=== PATIENT | female | born 1960 | race Two or more races ===

== ENCOUNTER 2024-03-20 19:16 | Emergency (ER) | payer MEDICARE, MEDICAID, SELFPAY ==
[2024-03-20 19:17] VITALS: BMI 30.2
--- NOTE | 2024-03-20 20:20 | PC.NURSE ---
NO ANSWER WHEN CALLED TO BE TRIAGED
--- NOTE | 2024-03-20 20:38 | PC.NURSE ---
NO ANSWER WHEN CALLED TO BE PLACED IN ROOM.
--- NOTE | 2024-03-20 20:56 | PC.NURSE ---
called pt in er lobby and outside and no answer at this time.
== END 2024-03-20 20:56 | disposition left against medical advice (07) ==
LOC: SERX 21:15
PROVIDERS: Emergency Provider Emergency Medicine
DX: Z53.21 Procedure and treatment not carried out due to patient leaving prior to being seen by health care provider (principal)

== ENCOUNTER 2024-08-07 10:59 | Emergency (ER) | payer MEDICARE, SELFPAY ==
[2024-08-07 11:17] VITALS: BP 135/93; PULSE 66; RESP 18; TEMP 36.9; O2SAT 96; BMI 28.3
--- NOTE | 2024-08-07 11:21 | XR_ITS ---
Examination: CT brain head without contrast. 2-D sagittal coronal reconstructions Date and time of exam:August 07, 2024 1218 hours Comparison February 04, 2024 INDICATIONS: Onset blurred vision vertigo tinnitus today, history large acute infarct right brainstem on brain MRI October 20, 2022 CTDI: vol (mGy):48 DLP: (mGycm):913 Technique: Multiple CT axial sections of the brain have been obtained, 5 mm slice thickness. Contrast has not been administered. 2-D sagittal, coronal reconstructions have been obtained Low dose protocols were performed. One or more of the following dose reduction techniques were used; automated exposure control, adjustment of the mA and/or KV according to patient size, use of iterative reconstruction technique. Findings: No significant ventricular enlargement. Old infarct right brainstem Intra-axial or extra-axial hemorrhage density is not seen. No mass effect or midline shift Basal cisterns are not remarkable. Fourth ventricle is midline. Cranial vault intact. 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
--- NOTE | 2024-08-07 11:22 | EKG_ITS ---
[facility] Test Date: 2024-08-07 Pat Name: JOSE LOPEZ Department: Room: - Gender: Female Vp Packaging: : 1960 Requested By: Bharat Munson Order Number: [id number] Reading MD: Bharat Munson Measurements Intervals Clymer Rate: 63 P: 20 ID: [id number] QRS: -56 QRSD: 83 T: -34 QT: 421 QTc: 432 Interpretive Statements SINUS RHYTHM LEFT AXIS DEVIATION [QRS AXIS < -30] VOLTAGE CRITERIA FOR LVH [MEETS CRITERIA IN ONE OF: R(aVL), S(V1), R(V5), R(V5/V6)+S(V1)] POSSIBLE ANTEROSEPTAL MYOCARDIAL INFARCTION , OF INDETERMINATE AGE [30 ms Q WAVE IN V1-V4] Compared to ECG 02/04/2024 10:57:25 No significant changes /store/S0/[id number]/[id number].pdf
--- NOTE | 2024-08-07 11:22 | PD.EDRME ---
Rapid Medical Screening Exam RME Arrival date/time: 08/07/24 10:59 63-year-old female with a history of hyperlipidemia, hypertension, type 2 diabetes, and 2 CVAs presents to the emergency room with a chief complaint of right ear pain, blurry vision, tinnitus, and dizziness x 2 days. Patient was sent to the emergency room by her primary care provider I have greeted and performed a focused initial assessment of this patient. A comprehensive ED assessment and evaluation of the patient, analysis of all test results, and completion of the medical decision making process will be conducted by additional ED providers. Chief Complaint: Dizziness Time Seen by Provider: 08/07/24 11:12 Vital signs: Vital Signs Temperature 98.4 F 08/07/24 11:17 Pulse Rate 66 08/07/24 11:17 Respiratory Rate 18 08/07/24 11:17 Blood Pressure 135/93 H 08/07/24 11:17 Pulse Oximetry (%) 96 08/07/24 11:17 Oxygen Delivery Method Room Air 08/07/24 11:17 Vital signs reviewed by provider: Yes
[2024-08-07 11:56] LABS: Basophils % (Auto) 0 % (0-2.5); Eosinophils # (Auto) 0.1 Thou/mm3 (0.0-0.5); Eosinophils % (Auto) 2 % (0-10); Hemoglobin 14.8 g/dL (12.0-16.0); Immature Granulocytes % (Auto) 0 % (0-0); Immature Granulocytes Auto 0.02 Thou/mm3 (0.00-0.00); Lymphocytes # (Auto) 2.7 Thou/mm3 (1.0-4.8); Lymphocytes % (Auto) 38 % (10-50); Mean Corpuscular HGB Conc 35.2 g/dl (31.0-37.0); Mean Corpuscular Hemoglobin 30.8 pg (25.0-35.0); Mean Corpuscular Volume 87 fL (80-100); Monocytes # (Auto) 0.4 Thou/mm3 (0.0-0.8); Monocytes % (Auto) 6 % (0-12); Neutrophils # (Auto) 3.7 Thou/mm3 (1.8-7.7); Neutrophils % (Auto) 53 % (37-80); Nucleated Red Blood Cell % 0 /100 WBC (0); Platelet Count 254 Thou/mm3 (140-440); RDW Standard Deviation 38.7 fL (36.4-46.3); Red Blood Count 4.81 Miln/mm3 (4.00-5.20)
[2024-08-07 12:14] LABS: Partial Thromboplastin Time 26.1 Seconds (22.0-36.0); Prothrombin Time 11.2 Seconds (9.0-12.2)
[2024-08-07 12:16] LABS: B-Type Natriuretic Peptide 32 pg/mL (0-100)
[2024-08-07 12:19] LABS: Alanine Aminotransferase 26 U/L (10-49); Albumin, Serum 4.3 gm/dL (3.4-4.8); Albumin/Globulin Ratio 1.7 (1.2-2.2); Alkaline Phosphatase 97 U/L (46-116); Anion Gap 10 (7-16); Aspartate Amino Transferase 19 U/L (0-34); BUN/Creatinine Ratio 21 Ratio (12-20); Blood Urea Nitrogen 17 mg/dL (9-23); Calcium 9.5 mg/dL (8.3-10.6); Calcium (Corrected) 9.5 mg/dL (8.5-10.1); Carbon Dioxide 29.5 mMol/L (20.0-31.0); Chloride 98 mMol/L (98-107); Creatinine (Component) 0.8 mg/dL (0.6-1.3); Globulin 2.6 gm/dL (2.3-3.5); Glucose 180 mg/dL (74-106); Magnesium 1.7 mg/dL (1.6-2.6); Osmolality,Calculated 280 (275-295); Potassium 3.6 mMol/L (3.4-5.1); Sodium 137 mMol/L (136-145); Total Protein 6.9 gm/dL (5.7-8.2); Troponin I < 0.002 ng/mL (0.0-0.045); eGFR > 60 See Note
[2024-08-07 12:29] LABS: Collection Type, Urine Clean Catch
[2024-08-07 12:58] LABS: Bilirubin,Urine Negative (Negative); Blood,Urine Trace (Negative); Clarity,Urine Clear (Clear/Hazy); Color,Urine Yellow (Lt Yel-Yel); Glucose, Urine Negative (Negative); Ketones,Urine Negative (Negative); Leukocyte Esterase,Urine Negative (Negative); Nitrite,Urine Negative (Negative); Protein,Urine Negative (Neg - Trace); RBC,Urine 5 /hpf (0-3); Squamous Epithelial Cell,Urine 2 /hpf (0-5); Urobilinogen,Urine Negative mg/dL (0.0-1.0); WBC,Urine 3 /hpf (0-5)
[2024-08-07 14:27] VITALS: BP 134/81; PULSE 58; RESP 20; TEMP 36.6; O2SAT 95
[2024-08-07 20:02] VITALS: BP 174/94; PULSE 54; RESP 18; TEMP 36.4; O2SAT 96
--- NOTE | 2024-08-07 21:36 | PD.EDDIZZY ---
ED Dizzyness RME/HPI General Chief Complaint: Dizziness Stated Complaint: sent by pmd w/c/o ringing in rt ear, dizzyx3 days Time Seen by Provider: 08/07/24 11:12 Source: patient and family Arrival date/time: 08/07/24 10:59 Mode of arrival: ambulatory Limitations: no limitations RME / HPI RME / HPI Narrative: 08/07/24 10:59 63-year-old female with a history of hyperlipidemia, hypertension, type 2 diabetes, and 2 CVAs presents to the emergency room with a chief complaint of right ear pain, blurry vision, tinnitus, and dizziness x 2 days. Patient was sent to the emergency room by her primary care provider I have greeted and performed a focused initial assessment of this patient. A comprehensive ED assessment and evaluation of the patient, analysis of all test results, and completion of the medical decision making process will be conducted by additional ED providers. Dr. Zuñiga?s Main ED Evaluation: 63-year-old female with a past medical history of HLD, HTN, T2DM, and two prior CVAs presents to the emergency department with right ear pain, blurry vision, tinnitus, and dizziness for the past two days. The patient was referred to the emergency department by her PCP for further evaluation. She describes the dizziness as a sensation of imbalance with no loss of consciousness, or focal neurological deficits. She denies fever, recent illness, or ear discharge. Related Data Home Medications ?Medication ?Instructions ?Recorded ?Confirmed sitagliptin phosphate 100 mg 100 mg PO QDAY 02/27/18 02/05/24 tablet (Januvia) pregabalin 75 mg capsule 150 mg PO BID 10/17/22 02/05/24 insulin glargine 100 unit/mL (3 40 unit subcut DAILY 02/04/24 02/05/24 mL) subcutaneous pen (Basaglar KwikPen U-100 Insulin) insulin regular human 100 unit/mL See Protocol subcut ACHS 02/04/24 02/05/24 (3 mL) subcutaneous pen (Novolin R FlexPen) acetaminophen 500 mg tablet 500 mg PO Q6H PRN Pain, Mild 02/05/24 02/05/24 aspirin 81 mg tablet 81 mg PO DAILY 02/05/24 02/05/24 benzonatate 200 mg capsule 200 mg PO TID 02/05/24 02/05/24 carvedilol 12.5 mg tablet 12.5 mg PO BID 02/05/24 02/05/24 clopidogrel 75 mg tablet 75 mg PO DAILY 02/05/24 02/05/24 glyburide 5 mg tablet 5 mg PO BID 02/05/24 02/05/24 hydrochlorothiazide 25 mg tablet 25 mg PO DAILY 02/05/24 02/05/24 hydroxyzine pamoate 50 mg capsule 50 mg PO QHSPRN PRN Pain 02/05/24 02/05/24 losartan 100 mg tablet 100 mg PO DAILY 02/05/24 02/05/24 Previous Rx's ?Medication ?Instructions ?Recorded atorvastatin 20 mg tablet 40 mg (2 x 20 mg) PO HS #30 tabs 02/06/24 meclizine 25 mg chewable tablet 25 mg PO TID PRN Dizziness #20 tabs 08/07/24 (Antivert) Allergies Allergy/AdvReac Type Severity Reaction Status Date / Time codeine Allergy Severe Nausea/Vomi Verified 08/07/24 11:04 tiing Review of Systems Review of Systems Systems Reviewed: All systems reviewed, normal except as documented Past Medical History Past Medical History NEUROLOGIC: Positive Neurological Disorders, Cerebrovascular Accident, Transient Ischemic Attacks (TIA) and Peripheral Neuropathy CARDIAC: Positive Cardiac Disorders, Angina, Hypercholesterolemia and Hypertension; Negative Congestive Heart Failure RESPIRATORY: Negative Chronic Obstructive Pulmonary Disease (COPD) GASTROINTESTINAL: Positive Gastrointestinal Disorders; Negative Colorectal Cancer GENITOURINARY: Negative Genitourinary Disorders or Renal Disease REPRODUCTIVE: Positive Pelvic Inflammatory Disease and Previous Pregnancies; Negative Breast Cancer MUSCULOSKELETAL: Positive Musculoskeletal Disorders and Arthritis; Negative Bone Cancer ENDOCRINE: Positive Endocrine Disorders and Diabetes Mellitus Type 2; Negative Diabetes Mellitus Type 1 HEMATOLOGIC: Negative Blood Disorders PSYCHO/SOCIAL: Positive Depression and Anxiety OTHER HISTORY: Positive Hospitalization and Chicken Pox; Negative Autoimmune Disease, Down Syndrome, Developmental Delay, Shingles, Falls, Blood Transfusions, Anesthesia Reactions, MRSA, Cancer, Breast Cancer, Cervical Cancer, Colorectal Cancer, Lung Cancer or Ovarian Cancer Family History FAMILY HISTORY: Positive Family Cardiac Disorders; Negative Family Cancer Surgical History SURGICAL: Positive Abdominal Surgery and Section Social History SMOKING STATUS: Never smoker ED Exam Narrative Physical exam: Cerebellar exam: no intention tremor, staccato speech, dysmetria or dysdiadochokinesia. The patient exhibits right-sided horizontal nystagmus but has no facial droop and no motor or sensory deficits. General Limitations: Present no limitations General appearance: Present alert and in no apparent distress Head Head exam: Present atraumatic Eye Eye exam: Present normal appearance, PERRL and EOMI ENT ENT exam: Present normal exam, normal oropharynx and mucous membranes moist Neck Neck exam: Present normal inspection, full ROM and trachea midline Chest Chest inspection: Present normal inspection and symmetric chest wall rise Respiratory Respiratory exam: Present normal lung sounds bilaterally Cardiovascular Cardiovascular exam: Present regular rate, normal rhythm and normal heart sounds Abdominal Exam Abdominal exam: Present soft and normal bowel sounds Extremities Exam Extremities exam: Present normal inspection and full ROM Back Exam Back exam: Present normal inspection and full ROM Neurological Exam Neurological exam: Present alert, oriented X3 and CN II-XII intact Psychiatric Psychiatric exam: Present normal affect and normal mood Skin Skin exam: Present warm, dry, intact and normal color Course Quality Measures none Orders Category Date Time Status EKG (ED ONLY) *Do not use* NOW Care 08/07/24 11:[address] head/brain wo con Stat Exams 08/07/24 11:21 Completed EKG (ED Only) Stat Exams 08/07/24 11:22 Draft B-Type Natriuretic Peptide Stat Lab 08/07/24 11:36 Completed CBC Stat Lab 08/07/24 11:36 Completed Comprehensive Metabolic Panel Stat Lab 08/07/24 11:36 Completed Magnesium Stat Lab 08/07/24 11:36 Completed Partial Thromboplastin Time Stat Lab 08/07/24 11:36 Completed Prothrombin Time with INR Stat Lab 08/07/24 11:36 Completed Troponin I Stat Lab 08/07/24 11:36 Completed Urinalysis Stat Lab 08/07/24 12:10 Completed Meclizine HCl [Antivert] Med 08/07/24 21:31 Discontinued 50 mg PO X1 ONE Vital Signs Vital signs: Vital Signs Temperature 98.4 F 08/07/24 11:17 Pulse Rate 66 08/07/24 11:17 Respiratory Rate 18 08/07/24 11:17 Blood Pressure 135/93 H 08/07/24 11:17 Pulse Oximetry (%) 96 08/07/24 11:17 Oxygen Delivery Method Room Air 08/07/24 11:17 Dizziness MDM Narrative MDM Narrative:: 2147 The patient expressed a desire to leave before a full reassessment could be performed to determine the effectiveness of meclizine in symptom relief. Scribe Attestation: I, Bouchra Cueva, am scribing for and in the presence of Dr. Zuñiga. Provider Notation: Although this document has been carefully reviewed, there may still be some phonetic and other typographical errors. These errors are purely grammatical due to imperfections in the software program and should not be construed in any way to compromise the substance of the patient's medical care during this visit. Patient data [facility] records reviewed:: [facility] previous records Clinical information provided by:: patient and family Social determinants that could affect healthcare access:: none Patient has the following chronic illnesses:: see PMH How is presenting disease/condition affected by chronic disease/condition?: uneffected by Evaluation data The following diagnostics were reviewed and interpreted by me:: lab results, radiology exam(s) and EKG tracing(s) Lab and/or radiology exams considered but not ordered:: na Interpretation Summary: Examination: CT brain head without contrast. Date and time of exam:August 07, 2024 1218 hours Comparison February 04, 2024 INDICATIONS: Onset blurred vision vertigo tinnitus today, history large acute infarct right brainstem on brain MRI October 20, 2022 Findings: No significant ventricular enlargement. Old infarct right brainstem Intra-axial or extra-axial hemorrhage density is not seen. No mass effect or midline shift Basal cisterns are not remarkable. Fourth ventricle is midline. Cranial vault intact. 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 Discharge instructions specifically effects, indications for sooner follow up or return to the emergency department, and the expected course of current diagnosis. Patient condition: Stable Discharge Plan Plan Patient Disposition: HOME (Self Care) Disposition Comment: Stable for discharge Patient condition on transfer: Stable Prescriptions/Referrals Prescriptions/Med Rec: New meclizine [Antivert] 25 mg tablet,chewable 25 mg PO TID PRN (Reason: Dizziness) Qty: 20 0RF No Action Januvia 100 mg Tablet 100 mg PO QDAY pregabalin 75 mg capsule 150 mg PO BID Patient Comments: TOME 1 C PSULA POR V A ORAL DOS VECES AL D A Novolin R FlexPen 100 unit/mL (3 mL) insulin pen See Protocol SUBCUT ACHS Protocol: Insulin Corrective High-Dose Regimen Condition: Fingerstick Blood Glucose Dose/Route: Insulin Units Condition: 150- 200 mg/dl Dose/Route: 2 units/SQ Condition: 201-250 mg/dl Dose/Route: 4 units/SQ Condition: 251-300 mg/dl Dose/Route: 6 units/SQ Condition: 301 - 350 mg/dl Dose/Route: 8 units/SQ Condition: greater than 350 mg/dl Dose/Route: 10 units/SQ Patient Comments: PLEASE SEE ATTACHED FOR DETAILED DIRECTIONS Rx Instructions: <150 = 0 151-200 = 2 units 201-250 = 4 units 251 - 300 = 6 units 301 - 350 = 8 units >350 = 10 units insulin glargine [Basaglar KwikPen U-100 Insulin] 100 unit/mL (3 mL) insulin pen 40 unit SUBCUT DAILY Patient Comments: INJECT 40 UNITS SUBCUTANEOUS DAILY 60 DAYS carvedilol 12.5 mg tablet 12.5 mg PO BID Patient Comments: MARITO JOSÉ LUIS TABLETA POR V A ORAL DOS VECES AL BELLA glyburide 5 mg tablet 5 mg PO BID benzonatate 200 mg capsule 200 mg PO TID Patient Comments: TOME 1 C PSULA POR V A ORAL GRETA VECES AL D A FOR 15 DAYS hydroxyzine pamoate 50 mg capsule 50 mg PO QHSPRN PRN (Reason: Pain) Patient Comments: TOME 1 CAPSULA POR VIA ORAL TODOS LOS MARTINEZ AL ACOSTARSE CUANDO SEA NECESARIO FOR 15 DAYS clopidogrel 75 mg tablet 75 mg PO DAILY Patient Comments: TOME JOSÉ LUIS TABLETA TODOS LOS MARTINEZ FOR 90 DAYS ORALLY 90 DAYS acetaminophen 500 mg tablet 500 mg PO Q6H PRN (Reason: Pain, Mild) aspirin 81 mg Tablet 81 mg PO DAILY hydrochlorothiazide 25 mg tablet 25 mg PO DAILY Patient Comments: TOME 1 TABLETA POR V A ORAL TODOS LOS D EN LA MA DUNCAN FOR 90 DAYS losartan 100 mg tablet 100 mg PO DAILY atorvastatin 20 mg Tablet 40 mg PO HS Qty: 30 0RF Referrals: Cristóbal Knox MD [Primary Care Provider] - In 1 week Problem List 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 Otherwise you should follow-up with your primary care doctor within the next several days. You should let your primary care doctor know that it was recommended that you be referred to an ear nose and throat doctor. If Karlie has any further difficulties with her ringing in her ear or feeling dizzy please return to the ER Print Language: Angolan Stand Alone Forms: [employer]on Award Info., Patient Portal Info Letter
[2024-08-07] MEDS: MECLIZINE HCL 25 MG TABLET 50 MG PO (21:39)
[2024-08-07 22:10] VITALS: BP 170/87; PULSE 65; RESP 18; TEMP 36.6; O2SAT 96
== END 2024-08-07 22:10 | disposition home or self-care (01) ==
PROVIDERS: Nurse Practitioner Family; Emergency Provider Emergency Medicine; PCP Family Medicine
DX: H81.01 Meniere's disease, right ear (principal); R94.31 Abnormal electrocardiogram [ECG] [EKG]
CPT/HCPCS: 36415; 70450; 80053; 81001; 83735; 83880; 84484; 85025; 85610; 85730; 93005; 99284; A9270

== ENCOUNTER 2024-10-25 11:29 | Inpatient (IN) | payer MEDICARE, MEDICAID, SELFPAY ==
[2024-10-25] VITALS (7 sets, daily range): BP systolic 133–170; BP diastolic 87–99; PULSE 53–82; RESP 16–96; TEMP 36.6–37; O2SAT 95–99; BMI 28.8
--- NOTE | 2024-10-25 12:06 | XR_ITS ---
Examination: CT brain head without contrast. 2-D sagittal coronal reconstructions Date and time of exam:October 25, 2024 1326 hours Comparison August 07, 2024 INDICATIONS: Patient fell today with injury of the head, head pain dizziness CTDI: vol (mGy):46.9 DLP: (mGycm):954 Technique: Multiple CT axial sections of the brain have been obtained, 5 mm slice thickness. Contrast has not been administered. 2-D sagittal, coronal reconstructions have been obtained Low dose protocols were performed. One or more of the following dose reduction techniques were used; automated exposure control, adjustment of the mA and/or KV according to patient size, use of iterative reconstruction technique. Findings: No significant ventricular enlargement. Intra-axial or extra-axial hemorrhage density is not seen. No mass effect or midline shift Basal cisterns are not remarkable. Fourth ventricle is midline. Cranial vault intact. Impression: Negative for acute hemorrhage, mass effect or midline shift
--- NOTE | 2024-10-25 12:06 | XR_ITS ---
Examination: CT cervical spine without contrast 2-D sagittal reconstructions 2-D coronal reconstructions 3-D reconstructions. Exam date and time:October 25, 2024 1326 hours Comparison October 10, 2022 INDICATIONS: Patient fell today with injury to the neck, neck pain CTDI:vol (mGy) 8.72 DLP: (mGycm) 194 Technique: Multiple 2 mm axial sections of the cervical spine have been obtained. The coronal and sagittal reconstructions have been obtained. 3-D reconstructions have been obtained. Low dose protocols were performed. One or more of the following dose reduction techniques were used; automated exposure control, adjustment of the mA and/or KV according to patient size, use of iterative reconstruction technique. Findings: Axial sections demonstrate intact base of the skull. C1 exhibit satisfactory relationship to the odontoid. No acute cervical vertebral body fracture seen. Alignment posterior spinous processes satisfactory. Impression: No acute cervical fracture.
--- NOTE | 2024-10-25 12:07 | EKG_ITS ---
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
--- NOTE | 2024-10-25 12:07 | XR_ITS ---
Examination: PA lateral chest 2 views TECHNIQUE: Upright PA lateral chest 2 views Date and time: October 25, 2024 1243 hours INDICATIONS: Hypertension diagnosis, patient fell today FINDINGS: Normal heart size No pneumothorax Clavicles ribs thoracic vertebral bodies appear intact IMPRESSION: No pneumothorax pulmonary contusion or hemothorax Minor atelectasis left base
--- NOTE | 2024-10-25 12:09 | PD.EDRME ---
Rapid Medical Screening Exam RME Arrival date/time: 10/25/24 11:29 63-year-old female presents to the emergency department today for complaints of dizziness and falls Chief Complaint: Fall Vital signs: Vital Signs Temperature 98.2 F 10/25/24 12:04 Pulse Rate 80 10/25/24 12:04 Respiratory Rate 16 10/25/24 12:04 Blood Pressure 152/89 H 10/25/24 12:04 Pulse Oximetry (%) 96 10/25/24 12:04 Oxygen Delivery Method Room Air 10/25/24 12:04
[2024-10-25 12:35] LABS: Collection Type, Urine Clean Catch
[2024-10-25 12:46] LABS: Bilirubin,Urine Negative (Negative); Blood,Urine Negative (Negative); Clarity,Urine Clear (Clear/Hazy); Color,Urine Colorless (Lt Yel-Yel); Glucose, Urine 4+ (Negative); Ketones,Urine Negative (Negative); Leukocyte Esterase,Urine Negative (Negative); Nitrite,Urine Negative (Negative); Protein,Urine Negative (Neg - Trace); RBC,Urine 1 /hpf (0-3); Specific Gravity,Urine 1.012 (1.001-1.035); Squamous Epithelial Cell,Urine < 1 /hpf (0-5); Urobilinogen,Urine Negative mg/dL (0.0-1.0); WBC,Urine < 1 /hpf (0-5)
[2024-10-25 12:48] LABS: Basophils % (Auto) 0 % (0-2.5); Eosinophils # (Auto) 0.1 Thou/mm3 (0.0-0.5); Eosinophils % (Auto) 1 % (0-10); Hematocrit 40.7 % (36.0-46.0); Hemoglobin 14.2 g/dL (12.0-16.0); Immature Granulocytes % (Auto) 0 % (0-0); Immature Granulocytes Auto 0.03 Thou/mm3 (0.00-0.00); Lymphocytes % (Auto) 25 % (10-50); Mean Corpuscular HGB Conc 34.9 g/dl (31.0-37.0); Mean Corpuscular Hemoglobin 30.9 pg (25.0-35.0); Mean Corpuscular Volume 89 fL (80-100); Monocytes # (Auto) 0.4 Thou/mm3 (0.0-0.8); Monocytes % (Auto) 5 % (0-12); Neutrophils # (Auto) 5.4 Thou/mm3 (1.8-7.7); Neutrophils % (Auto) 68 % (37-80); Nucleated Red Blood Cell % 0 /100 WBC (0); Platelet Count 282 Thou/mm3 (140-440); RDW Standard Deviation 40.8 fL (36.4-46.3); White Blood Count 7.9 Thou/mm3 (3.6-11.0)
[2024-10-25 13:07] LABS: B-Type Natriuretic Peptide 57 pg/mL (0-100)
[2024-10-25 13:10] LABS: Alanine Aminotransferase 25 U/L (10-49); Albumin, Serum 4.5 gm/dL (3.4-4.8); Alkaline Phosphatase 110 U/L (46-116); Anion Gap 12 (7-16); Aspartate Amino Transferase 21 U/L (0-34); BUN/Creatinine Ratio 20 Ratio (12-20); Bilirubin,Total 1.1 mg/dL (0.3-1.2); Blood Urea Nitrogen 14 mg/dL (9-23); Carbon Dioxide 26.2 mMol/L (20.0-31.0); Chloride 98 mMol/L (98-107); Creatinine (Component) 0.7 mg/dL (0.6-1.3); Estimated Creatinine Clearance 80.1 mL/min (>60); Globulin 2.2 gm/dL (2.3-3.5); Glucose 337 mg/dL (74-106); Magnesium 1.7 mg/dL (1.6-2.6); Osmolality,Calculated 285 (275-295); Potassium 3.5 mMol/L (3.4-5.1); Sodium 136 mMol/L (136-145); Total Protein 6.7 gm/dL (5.7-8.2); Troponin I < 0.020 ng/mL (0.0-0.045); eGFR > 60 See Note
[2024-10-25 13:12] LABS: Partial Thromboplastin Time 23.2 Seconds (22.0-36.0); Prothrombin Time 10.8 Seconds (9.0-12.2)
--- NOTE | 2024-10-25 17:16 | PD.EDFALL ---
ED Fall Injury RME/HPI General Chief Complaint: Fall Stated Complaint: HEAD INJURY FROM FALL OST SYNCOPE/BLACKED OUT Arrival date/time: 10/25/24 11:29 RME / HPI RME / HPI Narrative: 10/25/24 11:29 63-year-old female presents to the emergency department today for complaints of dizziness and falls DR. KATERINA POLK ED EVALUATION: 63 year old female with history of CVA (10/13 and 02/14), hypertension, diabetes, hyperlipidemia, vertigo (dx 07/2024) presents to the ED for evaluation of a right sided headache following a fall that occurred at approximately 10:00 AM today. The patient reports she was outside throwing leaves into the trash when she suddenly has darkening of vision followed by loss of consciousness. She awoke on the ground and called for help; her and son assisted her up. She denies any chest pain, shortness of breath, palpitations, or headache preceding LOC. She also reports experiencing similar but milder episodes of dizziness over the past two days, describing them as a sudden onset of generalized weakness, darkening vision, and a sensation of being pulled backward. Yesterday, one of the episodes occurred while in the kitchen and lowered herself to the floor until the symptoms resolved. She states that today's episode feels different from her typical vertigo symptoms, which she has been experiencing since her diagnosis three months ago. Patient notes that following her strokes, she initially required a wheelchair but was able to progress to using a cane after undergoing physical therapy. She reports a period of about one month where she was ambulating without any assistive device, but since her diagnosis of vertigo in July, she has resumed use of a cane due to persistent balance issues. Related Data Home Medications ?Medication ?Instructions ?Recorded ?Confirmed sitagliptin phosphate 100 mg 100 mg PO QDAY 02/27/18 10/25/24 tablet (Januvia) pregabalin 75 mg capsule 150 mg PO BID 10/17/22 10/25/24 insulin glargine 100 unit/mL (3 40 unit subcut DAILY 02/04/24 10/25/24 mL) subcutaneous pen (Basaglar KwikPen U-100 Insulin) insulin regular human 100 unit/mL See Protocol subcut ACHS 02/04/24 10/25/24 (3 mL) subcutaneous pen (Novolin R FlexPen) aspirin 81 mg tablet 81 mg PO DAILY 02/05/24 10/25/24 benzonatate 200 mg capsule 200 mg PO TID 02/05/24 10/25/24 carvedilol 12.5 mg tablet 12.5 mg PO BID 02/05/24 10/25/24 clopidogrel 75 mg tablet 75 mg PO DAILY 02/05/24 10/25/24 glyburide 5 mg tablet 5 mg PO BID 02/05/24 10/25/24 hydrochlorothiazide 25 mg tablet 25 mg PO DAILY 02/05/24 10/25/24 hydroxyzine pamoate 50 mg capsule 50 mg PO QHSPRN PRN Pain 02/05/24 10/25/24 losartan 100 mg tablet 100 mg PO DAILY 02/05/24 10/25/24 clonidine HCl 0.1 mg tablet mg 10/25/24 semaglutide 0.25 mg or 0.5 mg (2 mg subcut 10/25/24 mg/3 mL) subcutaneous pen injector (Ozempic) Previous Rx's ?Medication ?Instructions ?Recorded atorvastatin 20 mg tablet 40 mg (2 x 20 mg) PO HS #30 tabs 02/06/24 meclizine 25 mg chewable tablet 25 mg PO TID PRN Dizziness #20 tabs 08/07/24 (Antivert) Allergies Allergy/AdvReac Type Severity Reaction Status Date / Time codeine Allergy Severe Nausea/Vomi Verified 10/25/24 11:38 tiing Review of Systems Review of Systems Systems Reviewed: All systems reviewed, normal except as documented Past Medical History Past Medical History NEUROLOGIC: Positive Neurological Disorders, Cerebrovascular Accident (x 22 Sep 2022; Jan 2024), Transient Ischemic Attacks (TIA) and Peripheral Neuropathy CARDIAC: Positive Cardiac Disorders, Hypercholesterolemia and Hypertension GASTROINTESTINAL: Positive Gastrointestinal Disorders REPRODUCTIVE: Positive Pelvic Inflammatory Disease and Previous Pregnancies MUSCULOSKELETAL: Positive Musculoskeletal Disorders and Arthritis ENDOCRINE: Positive Endocrine Disorders and Diabetes Mellitus Type 2 PSYCHO/SOCIAL: Positive Depression and Anxiety OTHER HISTORY: Positive Chicken Pox Family History FAMILY HISTORY: Positive Family Cardiac Disorders; Negative Family Cancer Surgical History SURGICAL: Positive Abdominal Surgery and Section Social History SMOKING STATUS: Never smoker ED Exam Narrative Physical exam: GENERAL APPEARANCE: AxOx4, no obvious distress, nontoxic appearing HEENT: NC, AT. MMM. Oropharynx clear, significant ocular dysmetria, with inability to cross eyes during testing at midline, eye movements do not appropriately accommodate with extraocular movement testing. No nystagmus observed. NECK: Supple without lymphadenopathy. No stiffness or restricted ROM. HEART: Normal rate and regular rhythm, normal S1/S1, no m/r/g LUNGS: CTAB, moving air well. No crackles or wheezes are heard. ABDOMEN: Soft, nontender, nondistended with good bowel sounds heard. BACK: No midline C/T/L spine pain or deformity, No CVAT, no obvious deformity. EXTREMITIES: Without cyanosis, clubbing or edema. MUSCULOSKELETAL: FROM of all major joints, no chest tenderness NEUROLOGICAL: Subtle slurred speech, unsteady Romberg but not lateralizing her fall. Alert and oriented, moving all 4 extremities. Skin: Warm and dry without any rash. Course Quality Measures none Orders Category Date Time Status Admit to Inpatient Status Routine Admission 10/25/24 18:26 Active Patient Condition Routine Admission 10/25/24 18:26 Ordered Bedside Blood Glucose ACHS Care 10/25/24 18:[address] Screening NOW Care 10/25/24 18:33 Active Continuous Pulse Oximetry NOW Care 10/25/24 18:26 Active EKG (ED ONLY) *Do not use* NOW Care 10/25/24 12:07 Completed MRI Screening NOW Care 10/25/24 18:33 Active Miscellaneous Nursing Order NOW Care 10/25/24 18:30 Active Notify provider NEEDED Care 10/25/24 18:26 Active Consult to Neurology / Tele-Neurology Routine Cons 10/25/24 18:32 Active Diet Carbohydrate Consistent Low Diet 10/25/[address] angio carotid w head w Routine Exams 10/25/24 18:[address] cervical spine wo con Stat Exams 10/25/24 12:[address] head/brain wo con Stat Exams 10/25/24 12:06 Completed EKG (ED Only) Stat Exams 10/25/24 12:07 Draft MR head/brain wo con Routine Exams 10/25/24 Ordered XR chest 2V Stat Exams 10/25/24 12:07 Completed B-Type Natriuretic Peptide Stat Lab 10/25/24 12:33 Completed CBC AM DRAW Lab 10/26/24 05:00 Ordered CBC AM DRAW Lab 10/27/24 05:00 Ordered CBC AM DRAW Lab 10/28/24 05:00 Ordered CBC Stat Lab 10/25/24 12:33 Completed Comprehensive Metabolic Panel AM DRAW Lab 10/26/24 05:00 Ordered Comprehensive Metabolic Panel AM DRAW Lab 10/27/24 05:00 Ordered Comprehensive Metabolic Panel AM DRAW Lab 10/28/24 05:00 Ordered Comprehensive Metabolic Panel Stat Lab 10/25/24 12:33 Completed Glycohemoglobin w (eAG) AM DRAW Lab 10/26/24 05:00 Ordered Magnesium AM DRAW Lab 10/26/24 05:00 Ordered Magnesium Stat Lab 10/25/24 12:33 Completed Partial Thromboplastin Time Stat Lab 10/25/24 12:33 Completed Phosphorous AM DRAW Lab 10/26/24 05:00 Ordered Prothrombin Time with INR Stat Lab 10/25/24 12:33 Completed Thyroid Stimulating Hormone AM DRAW Lab 10/26/24 05:00 Ordered Troponin I Stat Lab 10/25/24 12:33 Completed Urinalysis Stat Lab 10/25/24 12:22 Completed Acetaminophen Tab [Tylenol Tab] Med 10/25/24 18:26 Active 650 mg PO Q6H PRN Dextrose 50% Syr [D50w Syringe Abboject] Med 10/25/24 18:30 Active 25 ml IV Q15MIN PRN Dextrose 50% Syr [D50w Syringe Abboject] Med 10/25/24 18:30 Active 50 ml IV Q15MIN PRN Enoxaparin [Lovenox] Med 10/25/24 18:30 Active 40 mg SC QDAY Glucagon Inj Med 10/25/24 18:30 Ordered 1 mg IM Q15MIN PRN INSULIN LISPRO (AdmeLOG) [HumaLOG] Med 10/25/24 21:00 Ordered See Protocol SC ACHS Insulin Glargine Inj [Lantus Inj] Med 10/25/24 18:45 Ordered 30 unit SC QDAY Ondansetron Inj [Zofran Inj] Med 10/25/24 18:26 Ordered 4 mg IVP Q6H PRN Senna [Senokot] Med 10/25/24 18:26 Ordered 1 tab PO QDAY PRN Code Status Routine Oth 10/25/24 18:26 Ordered Oxygen Delivery PRN RT 10/25/24 18:26 Active Vital Signs Vital signs: Vital Signs Temperature 98.2 F 10/25/24 12:04 Pulse Rate 80 10/25/24 12:04 Respiratory Rate 16 10/25/24 12:04 Blood Pressure 152/89 H 10/25/24 12:04 Pulse Oximetry (%) 96 10/25/24 12:04 Oxygen Delivery Method Room Air 10/25/24 12:04 Pulse ox is 96% on room air which is adequate. Fall MDM Narrative MDM Narrative:: Lacy Orozco am scribing for and in the presence of Dr. Easley. Patient data External records reviewed:: [facility] previous records (I reviewed ED visit on 08/07/2024 ) Clinical information provided by:: patient Social determinants that could affect healthcare access:: none Patient has the following chronic illnesses:: CVA (10/13 and 02/14), hypertension, diabetes, hyperlipidemia, vertigo (dx 07/2024) How is presenting disease/condition affected by chronic disease/condition?: exacerbated by Evaluation data The following diagnostics were reviewed and interpreted by me:: lab results, radiology exam(s) and EKG tracing(s) (EKG 10/25/24 @ 12:16. NSR, HR 77, LAD, no STEMI. ) Lab and/or radiology exams considered but not ordered:: None Interpretation Summary: Ordering Physician: Debora RAYMOND)Payam NP Date of Service: 10/25/24 Procedure(s): CT cervical spine wo con Accession Number(s): [id number] cc: Deobra RAYMOND)Payam NP; Cristóbal Knox MD; Sukh Orta MD~ Examination: CT cervical spine without contrast 2-D sagittal reconstructions 2-D coronal reconstructions 3-D reconstructions. Exam date and time:October 25, 2024 1326 hours Comparison October 10, 2022 INDICATIONS: Patient fell today with injury to the neck, neck pain CTDI:vol (mGy) 8.72 DLP: (mGycm) 194 Technique: Multiple 2 mm axial sections of the cervical spine have been obtained. The coronal and sagittal reconstructions have been obtained. 3-D reconstructions have been obtained. Low dose protocols were performed. One or more of the following dose reduction techniques were used; automated exposure control, adjustment of the mA and/or KV according to patient size, use of iterative reconstruction technique. Findings: Axial sections demonstrate intact base of the skull. C1 exhibit satisfactory relationship to the odontoid. No acute cervical vertebral body fracture seen. Alignment posterior spinous processes satisfactory. Impression: No acute cervical fracture. Dictated By:Sukh Orta MD Signed By:<Electronically signed by Sukh Orta MD in OV>10/25/24 1341 Ordering Physician: Debora (ALEJANDRA),Payam ROBERTS Date of Service: 10/25/24 Procedure(s): CT head/brain wo con Accession Number(s): [id number] cc: Debora RAYMOND),Payam ROBERTS; Cristóbal Knox MD; Sukh Orta MD~ Examination: CT brain head without contrast. 2-D sagittal coronal reconstructions Date and time of exam:October 25, 2024 1326 hours Comparison August 07, 2024 INDICATIONS: Patient fell today with injury of the head, head pain dizziness CTDI: vol (mGy):46.9 DLP: (mGycm):954 Technique: Multiple CT axial sections of the brain have been obtained, 5 mm slice thickness. Contrast has not been administered. 2-D sagittal, coronal reconstructions have been obtained Low dose protocols were performed. One or more of the following dose reduction techniques were used; automated exposure control, adjustment of the mA and/or KV according to patient size, use of iterative reconstruction technique. Findings: No significant ventricular enlargement. Intra-axial or extra-axial hemorrhage density is not seen. No mass effect or midline shift Basal cisterns are not remarkable. Fourth ventricle is midline. Cranial vault intact. Impression: Negative for acute hemorrhage, mass effect or midline shift Dictated By:Sukh Orta MD Signed By:<Electronically signed by Sukh Orta MD in OV>10/25/24 1343 Ordering Physician: Payam Cazares NP, NP Date of Service: 10/25/24 Procedure(s): XR chest 2V Accession Number(s): [id number] cc: Debora RAYMOND),Payam ROBERTS; Cristóbal Knox MD; Sukh Orta MD~ Examination: PA lateral chest 2 views TECHNIQUE: Upright PA lateral chest 2 views Date and time: October 25, 2024 1243 hours INDICATIONS: Hypertension diagnosis, patient fell today FINDINGS: Normal heart size No pneumothorax Clavicles ribs thoracic vertebral bodies appear intact IMPRESSION: No pneumothorax pulmonary contusion or hemothorax Minor atelectasis left base Dictated By:Sukh Orta MD Signed By:<Electronically signed by Sukh Orta MD in OV>10/25/24 1257 Medications / Prescriptions Medications or Prescriptions considered but not ordered:: None Medication administrations:: Medication Administration History Acetaminophen (Acetaminophen 325 Mg Tablet) 650 mg PO Q6H PRN PRN Reason: Fever >100.3 or pain Stop: 11/24/24 18:25 Dextrose (Dextrose 50%-Water Inj 50 Ml Syringe) 25 ml IV Q15MIN PRN PRN Reason: BG 50-70 responsive npo pt Stop: 11/24/24 18:29 Dextrose (Dextrose 50%-Water Inj 50 Ml Syringe) 50 ml IV Q15MIN PRN PRN Reason: BG <50 OR BG <70 & pt unresponsive Stop: 11/24/24 18:29 Enoxaparin Sodium (Enoxaparin Sod Inj 40 Mg/0.4 Ml Syringe) 40 mg SC QDAY MIKE Stop: 11/08/24 18:29 Glucagon (Glucagon Inj 1 Mg Vial) 1 mg IM Q15MIN PRN PRN Reason: BG <70, and no IV access Insulin Glargine (Insulin Glargine (Lantus) 5 Unit/0.05 Ml (Per 5 Units)) 30 unit SC QDAY MIKE Stop: 11/24/24 18:44 Insulin Human Lispro (Insulin Lispro (Admelog) 1 Unit/0.01 Ml Unit) 0 unit SC ACHS MIKE; Protocol Stop: 11/24/24 20:59 Ondansetron HCl (Ondansetron Inj 2 Mg/Ml Inj 2 Ml) 4 mg IVP Q6H PRN; Protocol PRN Reason: NAUSEA OR VOMITING Stop: 11/24/24 18:25 Sennosides (Senna Tablet) 1 tab PO QDAY PRN; Protocol PRN Reason: constipation Stop: 11/24/24 18:25 See above Consultations Consultation(s) initiated? (list below): Yes Consultation #1 (Physician, Specialty, Details): I spoke with neurologist Dr. Barbosa. Discussed patients PMHx, HPI, ED course, exam findings, labs, and radiology results. Given history of posterior P1 and P2 narrowing, advised admitting the patient for an MRI. Time: 17:26 Consultation #2 (Physician, Specialty, Details): I spoke with resident Dr. Dodge working with Dr. Arellano. Discussed patients PMHx, HPI, ED course, exam findings, labs, and radiology results. The hospitalist agree to accept the patient for admission. Time: 17:35 Diagnosis Fall Differential Diagnosis: syncope and other (CVA, TIA, vertigo ) Most likely diagnosis given after review of the tests above:: Ataxia Admission Indicated Admission indicated?: indicated Admission Request Was there a request for admission?: Yes Admission Attestation Admission request attestation: Discussed case with [] from Hospitalist service regarding admission. Discussed patients ED course, exam findings, labs, and radiology results. The Hospitalist [agrees,declines] to accept the patient for admission. Disposition Plan Disposition Plan: Admit Discharge Plan Plan Patient Disposition: Admit Acute Care w/in Hospital Prescriptions/Referrals Prescriptions/Med Rec: No Action Januvia 100 mg Tablet 100 mg PO QDAY pregabalin 75 mg capsule 150 mg PO BID Patient Comments: TOME 1 C PSULA POR V A ORAL DOS VECES AL D A Novolin R FlexPen 100 unit/mL (3 mL) insulin pen See Protocol SUBCUT ACHS Protocol: Insulin Corrective High-Dose Regimen Condition: Fingerstick Blood Glucose Dose/Route: Insulin Units Condition: 150- 200 mg/dl Dose/Route: 2 units/SQ Condition: 201-250 mg/dl Dose/Route: 4 units/SQ Condition: 251-300 mg/dl Dose/Route: 6 units/SQ Condition: 301 - 350 mg/dl Dose/Route: 8 units/SQ Condition: greater than 350 mg/dl Dose/Route: 10 units/SQ Patient Comments: PLEASE SEE ATTACHED FOR DETAILED DIRECTIONS Rx Instructions: <150 = 0 151-200 = 2 units 201-250 = 4 units 251 - 300 = 6 units 301 - 350 = 8 units >350 = 10 units insulin glargine [Basaglar KwikPen U-100 Insulin] 100 unit/mL (3 mL) insulin pen 40 unit SUBCUT DAILY Patient Comments: INJECT 40 UNITS SUBCUTANEOUS DAILY 60 DAYS carvedilol 12.5 mg tablet 12.5 mg PO BID Patient Comments: TOME JOSÉ LUIS TABLETA POR V A ORAL DOS VECES AL BELLA glyburide 5 mg tablet 5 mg PO BID benzonatate 200 mg capsule 200 mg PO TID Patient Comments: TOME 1 C PSULA POR V A ORAL GRETA VECES AL D A FOR 15 DAYS hydroxyzine pamoate 50 mg capsule 50 mg PO QHSPRN PRN (Reason: Pain) Patient Comments: TOME 1 CAPSULA POR VIA ORAL TODOS LOS MARTINEZ AL [facility]STARSE CUANDO SEA NECESARIO FOR 15 DAYS clopidogrel 75 mg tablet 75 mg PO DAILY Patient Comments: TOME JOSÉ LUIS TABLETA TODOS LOS MARTINEZ FOR 90 DAYS ORALLY 90 DAYS aspirin 81 mg Tablet 81 mg PO DAILY hydrochlorothiazide 25 mg tablet 25 mg PO DAILY Patient Comments: TOME 1 TABLETA POR V A ORAL TODOS LOS D EN LA MA DUNCAN FOR 90 DAYS losartan 100 mg tablet 100 mg PO DAILY atorvastatin 20 mg Tablet 40 mg PO HS Qty: 30 0RF meclizine [Antivert] 25 mg tablet,chewable 25 mg PO TID PRN (Reason: Dizziness) Qty: 20 0RF clonidine HCl 0.1 mg tablet Patient Comments: TOME JOSÉ LUIS TABLETA CADA OCHO HORAS ORALLY 2 TIMES PER DAY 90 DAYS Ozempic 0.25 mg or 0.5 mg (2 mg/3 mL) pen injector SUBCUT Patient Comments: INYECTE 0.5 MG POR V A SUBCUT MERRICK SEMANALMENTE Problem List Clinical Impression: Ataxia Patient/Caregiver Discharge Instructions Print Language: Occitan Stand Alone Forms: Shanon Award Info., Patient Portal Info Letter
--- NOTE | 2024-10-25 18:34 | ESHP_ITS ---
<Statement entered by Skyler Arellano MD - 11/02/24 13:33> I reviewed above note and agree with findings and plans. I have also personally examined the patient with medicine team and went over assessment and plan with medical team including corporate development intern and resident physician. Documentation for date of: 10/25/24 HPI History of Present Illness Chief complaint: dizziness History of present illness: Farida Kern is 63 yr female with PMH of hypertension, hyperlipidemia, previous stroke, insulin-dependent diabetes, neuropathy, vertigo presenting to ED due to dizziness. Patient's was at bedside who also provided information. Earlier today she was working outside doing yard work, throwing away garbage when she started to feel dizzy and fell. and son were at home that were able to assist patient back up. Patient denies any loss of consciousness or trauma. Per ED, patient had hit her head. Has odd explanations of neurology sensations. Stating that she is experiencing like something is pulling her backwards or pulling her down. Has no prodromal symptoms. Denies altered vision, headache, chest pain, shortness of breath. Endorses occasional vertigo episodes that feel like she is spinning. Has not been able to follow-up with neurology outpatient due to insurance issues. In ED, BP 150/90, all other vital stable. CBC CMP unremarkable. Glucose elevated 337 on admission. UA negative. EKG shows sinus rhythm rate 77, QTc 442. Chest x-ray negative. CT head negative for acute hemorrhage/midline shift. CT spine negative for fracture. Urology Dr. Barbosa was consulted. Will admit patient for workup of ataxia and dizziness. No stroke alert initiated as she was out of her well-known time. PMH: As noted above PSH: Hernia repair, Family Hx: Parents , siblings have history of diabetes Social: Retired, lives with . Denies smoking, denies drinking Meds: med rec pending Allergies: codeine Review of Systems Review of Systems Systems Reviewed: All systems reviewed, normal except as documented Exam Vital Signs Temp Pulse Resp BP Pulse Ox O2 Del Method 98.1 F 63 17 151/98 H 95 Room Air 10/25/24 16:18 10/25/24 16:18 10/25/24 16:18 10/25/24 16:18 10/25/24 16:18 10/25/24 16:18 Narrative Exam General: Female, well kempt, No acute distress, cooperative HEENT: NCAT, No JVD noted. Mucosa dry. Pupils are equal and reactive to light bilaterally Cardiovascular: Normal S1 and S2. Regular rate and rhythm. Respiratory: Lungs are clear to auscultation bilaterally. No wheezing or crackles heard. Abdomen: Soft, nontender, not distended, normal bowel sounds. Skin: Warm to touch, dry, no rashes noted Musculoskeletal: No gross injuries. Able to move all 4 extremities. No pitting edema Neuro: Alert and oriented x3. No focal neuro deficits. No facial asymmetry, strenght 5/5, occular movements intact, Psych: Normal affect and mood Results: Labs 10/25/24 12:33 10/25/24 12:33 Labs: Short CBC 10/25/24 Range/Units 12:33 WBC 7.9 (3.6-11.0) Thou/mm3 Hgb 14.2 (12.0-16.0) g/dL Hct 40.7 (36.0-46.0) % Plt Count 282 (140-440) Thou/mm3 BMP 10/25/24 12:33 Sodium 136 Potassium 3.5 Chloride 98 Carbon Dioxide 26.2 BUN 14 Creatinine 0.7 Glucose 337 H Calcium 10.0 Cardiac Enzymes 10/25/24 Range/Units 12:33 Troponin I < 0.020 (0.0-0.045) ng/mL Liver Function 10/25/24 Range/Units 12:33 Total Bilirubin 1.1 (0.3-1.2) mg/dL AST 21 (0-34) U/L ALT 25 (10-49) U/L Alkaline Phosphatase 110 (46-116) U/L Albumin 4.5 (3.4-4.8) gm/dL Urine 10/25/24 Range/Units 12:22 Urine Color Colorless A (Lt Yel-Yel) Urine Clarity Clear (Clear/Hazy) Urine pH 7.0 (5.0-7.0) Ur Specific [place] 1.012 (1.001-1.035) Urine Protein Negative (Neg - Trace) Urine Glucose (UA) 4+ A (Negative) Quality Measures Quality Measures none Advance care planning discussed with:: patient Medications Home Medications and Allergies Home Medications ?Medication ?Instructions ?Recorded ?Confirmed ?Type sitagliptin phosphate 100 mg 100 mg PO QDAY 02/27/18 0 10/25/24 History tablet (Januvia) pregabalin 75 mg capsule 150 mg PO BID 10/17/2210/25 History insulin glargine 100 unit/mL (3 40 unit subcut DAILY 0 02/04/24 10/25/24 History mL) subcutaneous pen (Basaglar KwikPen U-100 Insulin) insulin regular human 100 unit/mL See Protocol subcut ACHS 02/04/24 10/25/24 History (3 mL) subcutaneous pen (Novolin R FlexPen) aspirin 81 mg tablet 81 mg PO DAILY 02/05/2409/15 History benzonatate 200 mg capsule 200 mg PO TID 02/05/2409/15 History carvedilol 12.5 mg tablet 12.5 mg PO BID 02/05/2409/15 History clopidogrel 75 mg tablet 75 mg PO DAILY 02/05/2409/15 History glyburide 5 mg tablet 5 mg PO BID 02/05/24 5 History hydrochlorothiazide 25 mg tablet 25 mg PO DAILY 10/25/24 History hydroxyzine pamoate 50 mg capsule 50 mg PO QHSPRN PRN Pain 02/05/24 10/25/24 History losartan 100 mg tablet 100 mg PO DAILY 02/05/2409/15 History clonidine HCl 0.1 mg tablet mg 10/25/24 History semaglutide 0.25 mg or 0.5 mg (2 mg subcut 10/25/24 H istory mg/3 mL) subcutaneous pen injector (Ozempic) Allergies Allergy/AdvReac Type Severity Reaction Status Date / Time codeine Allergy Severe Nausea/Vomi Verified 10/25/24 11:38 tiing Visit Medications Acetaminophen (Acetaminophen 325 Mg Tablet) 650 mg PO Q6H PRN PRN Reason: Fever >100.3 or pain Stop: 11/24/24 18:25 Dextrose (Dextrose 50%-Water Inj 50 Ml Syringe) 25 ml IV Q15MIN PRN PRN Reason: BG 50-70 responsive npo pt Stop: 11/24/24 18:29 Dextrose (Dextrose 50%-Water Inj 50 Ml Syringe) 50 ml IV Q15MIN PRN PRN Reason: BG <50 OR BG <70 & pt unresponsive Stop: 11/24/24 18:29 Enoxaparin Sodium (Enoxaparin Sod Inj 40 Mg/0.4 Ml Syringe) 40 mg SC QDAY MIKE Stop: 11/08/24 18:29 Glucagon (Glucagon Inj 1 Mg Vial) 1 mg IM Q15MIN PRN PRN Reason: BG <70, and no IV access Insulin Glargine (Insulin Glargine (Lantus) 5 Unit/0.05 Ml (Per 5 Units)) 30 unit SC QDAY MIKE Stop: 11/24/24 18:44 Insulin Human Lispro (Insulin Lispro (Admelog) 1 Unit/0.01 Ml Unit) 0 unit SC ACHS MIKE; Protocol Stop: 11/24/24 20:59 Ondansetron HCl (Ondansetron Inj 2 Mg/Ml Inj 2 Ml) 4 mg IVP Q6H PRN; Protocol PRN Reason: NAUSEA OR VOMITING Stop: 11/24/24 18:25 Sennosides (Senna Tablet) 1 tab PO QDAY PRN; Protocol PRN Reason: constipation Stop: 11/24/24 18:25 Assessment & Plan Plan Faridagianluca Kern is 63 yr female with PMH of hypertension, hyperlipidemia, previous stroke, insulin-dependent diabetes, neuropathy, vertigo presenting to ED due to dizziness. Patient's was at bedside who also provided information. Earlier today she was working outside doing yard work, throwing away garbage when she started to feel dizzy and fell. Neurology Dr. Barbosa was consulted. Will admit patient for workup of ataxia and dizziness. No stroke alert initiated as she was out of her well-known time. #Ataxia with dizziness Unknown cause at this time. Maybe due to heat exposure, vertigo episode, dehydration, TIA. Will workup for storke. Not calling stroke aler as patient is out of well known time. Glucose elevated 337 on admission. UA negative. EKG shows sinus rhythm rate 77, QTc 442. Chest x-ray negative. CT head negative for acute hemorrhage/midline shift. CT spine negative for fracture. -neurology Dr. Barbosa consulted ? MRI brain pending ? CTA head neck pending ? Continue home dose Plavix ? Continue home dose atorvastatin # Insulin-dependent type 2 diabetes #Neuropathy On admission initial glucose 337. Last A1c 8.5 on 01/2024. Patient takes glipizide, 40 units insulin, Januvia, Ozempic for diabetes at home. -Held home medications -Start glargine 30 units -Bedside blood glucose checks ACHS -Insulin lispro sliding scale -Carb consistent low diet -A1c pending - Pregabalin 150 twice daily to resume after med rec #Hx HTN Patient takes Coreg 12.5 twice daily, clonidine 0.1 mg, hydrochlorothiazide 25 mg losartan 100 mg. ? Med rec pending Health maintenance: Dispo: tele, stroke workup FEN: low carb DVT prophylaxis: Subcu heparin CODE STATUS: Full code The patient's management plan was discussed with my attending physician Dr. Arellano. Veronica Dodge, PGY-1
--- NOTE | 2024-10-25 20:41 | XR_ITS ---
Examination: CTA carotids with intravenous contrast CTA brain, head with intravenous contrast. 2-D sagittal, coronal reconstructions. 3-D reconstructions. Exam date and time: October 25, 20242052 hours INDICATIONS: Onset syncope headache dizziness today CTDI: vol (mGy) 11.6 DLP: (mGycm) 438 Technique: Multiple CTA axial brain, head carotid images post intravenous contrast injection 75 cc, [id number]. 2-D sagittal, coronal reconstructions. 3-D reconstructions, 3-D post processing including vascular maximum intensity projection images. Low dose protocols were performed. One or more of the following dose reduction techniques were used; automated exposure control, adjustment of the mA and/or KV according to patient size, use of iterative reconstruction technique. Findings: No significant common carotid carotid bifurcation or internal carotid artery stenoses Codominant vertebral arteries with no critical stenoses No cerebral especially arterial occlusions or thrombus 90% stenosis mid right M1 segment middle cerebral artery 70% stenosis M1 segment left middle cerebral artery IMPRESSION: No significant neck arterial stenoses 90% stenosis mid right M1 segment middle cerebral artery. 70% stenosis M1 segment left middle cerebral artery
[2024-10-25] MEDS: ENOXAPARIN SOD INJ 40 MG/0.4 ML SYRINGE SC (21:42)
[2024-10-25] MEDS: carVEDILOL 12.5 MG TABLET PO (21:42)
[2024-10-25] MEDS: ATORVASTATIN CALCIUM 20 MG TABLET 40 MG PO (21:42)
[2024-10-25] MEDS: INSULIN LISPRO (AdmeLOG) 1 UNIT/0.01 ML UNIT SC (21:48)
[2024-10-25] MEDS: INSULIN GLARGINE (Lantus) 5 UNIT/0.05 ML (PER 5 UNITS) 30 UNIT SC (21:48)
--- NOTE | 2024-10-25 23:30 | PD.VCONSULT1 ---
Telemedicine visit statement This visit was conducted with the use of interactive audio and video telecommunications system that permits real time communication between the patient and the provider. Patient's verbal consent for virtual visit was obtained on 10/25/24 at 2330. History of Present Illness History of Present Illness History of present illness: Farida Kern is 63 yr female with PMH of hypertension, hyperlipidemia, previous stroke, insulin-dependent diabetes, neuropathy, vertigo presenting to ED due to dizziness. Patient's was at bedside who also provided information. Earlier today she was working outside doing yard work, throwing away garbage when she started to feel dizzy and fell. and son were at home that were able to assist patient back up. Patient denies any loss of consciousness or trauma. Per ED, patient had hit her head. Has odd explanations of neurology sensations. Stating that she is experiencing like something is pulling her backwards or pulling her down. Has no prodromal symptoms. Denies altered vision, headache, chest pain, shortness of breath. Endorses occasional vertigo episodes that feel like she is spinning. Has not been able to follow-up with neurology outpatient due to insurance issues. Workup in ER: Vitals: BP 150/90, otherwise stable. Labs CBC CMP unremarkable. Glucose elevated 337 on admission. UA negative. EKG shows sinus rhythm rate 77, QTc 442. Chest x-ray negative. CT head negative for acute hemorrhage/midline shift. CT spine negative for fracture. Neurology was consulted and we decided to admit the patient for workup of ataxia and dizziness. No stroke alert initiated as the last known well time was long time ago. Meds Home Medications and Allergies Home Medications ?Medication ?Instructions ?Recorded ?Confirmed ?Type sitagliptin phosphate 100 mg 100 mg PO QDAY 02/27/18 10/25/24 History tablet (Januvia) pregabalin 75 mg capsule 150 mg PO BID 10/17/22 10/25/24 History insulin glargine 100 unit/mL (3 40 unit subcut DAILY 02/04/24 10/25/24 History mL) subcutaneous pen (Basaglar KwikPen U-100 Insulin) insulin regular human 100 unit/mL See Protocol subcut ACHS 02/04/24 10/25/24 History (3 mL) subcutaneous pen (Novolin R FlexPen) aspirin 81 mg tablet 81 mg PO DAILY 02/05/24 10/25/24 History carvedilol 12.5 mg tablet 12.5 mg PO BID 02/05/24 10/25/24 History clopidogrel 75 mg tablet 75 mg PO DAILY 02/05/24 10/25/24 History glyburide 5 mg tablet 5 mg PO BID 02/05/24 10/25/24 History hydrochlorothiazide 25 mg tablet 25 mg PO DAILY 02/05/24 10/25/24 History losartan 100 mg tablet 100 mg PO DAILY 02/05/24 10/25/24 History atorvastatin 80 mg tablet 80 mg PO DAILY 10/25/24 10/25/24 History clonidine HCl 0.1 mg tablet 0.1 mg PO BID 10/25/24 10/25/24 History semaglutide 0.25 mg or 0.5 mg (2 0.5 mg subcut QWEEK 10/25/24 10/26/24 History mg/3 mL) subcutaneous pen injector (Ozempic) Allergies Allergy/AdvReac Type Severity Reaction Status Date / Time codeine Allergy Severe Nausea/Vomi Verified 10/25/24 11:38 tiing Virtual exam Vital Signs Temp Pulse Resp BP Pulse Ox O2 Del Method 98.6 F 67 16 170/87 H 95 Room Air 10/25/24 19:09 10/25/24 21:42 10/25/24 19:13 10/25/24 21:42 10/25/24 19:09 10/25/24 19:09 Results Labs 10/26/24 05:18 10/26/24 05:18 Labs: Short CBC 10/25/24 Range/Units 12:33 WBC 7.9 (3.6-11.0) Thou/mm3 Hgb 14.2 (12.0-16.0) g/dL Hct 40.7 (36.0-46.0) % Plt Count 282 (140-440) Thou/mm3 BMP 10/25/24 12:33 Sodium 136 Potassium 3.5 Chloride 98 Carbon Dioxide 26.2 BUN 14 Creatinine 0.7 Glucose 337 H Calcium 10.0 Cardiac Enzymes 10/25/24 Range/Units 12:33 Troponin I < 0.020 (0.0-0.045) ng/mL Liver Function 10/25/24 Range/Units 12:33 Total Bilirubin 1.1 (0.3-1.2) mg/dL AST 21 (0-34) U/L ALT 25 (10-49) U/L Alkaline Phosphatase 110 (46-116) U/L Albumin 4.5 (3.4-4.8) gm/dL Urine 10/25/24 Range/Units 12:22 Urine Color Colorless A (Lt Yel-Yel) Urine Clarity Clear (Clear/Hazy) Urine pH 7.0 (5.0-7.0) Ur Specific [place] 1.012 (1.001-1.035) Urine Protein Negative (Neg - Trace) Urine Glucose (UA) 4+ A (Negative) Assessment & Plan Problem List (1) Ataxia: Status: Resolved (2) Impairment of balance: Status: Resolved (3) Type 2 diabetes mellitus: Status: Chronic (4) Hypertension: Status: Chronic (5) Anxiety and depression: Status: Acute Assessment and plan: Needs nonmedicinal measures to control her mood symptoms could be contributing to intermittent worsening vertigo imbalance and frequent falls. (6) TIA (transient ischemic attack): Status: Resolved Assessment and plan: Reassurance given to the patient regarding the negative MRI brain, her vertigo, imbalance are all related to uncontrolled diabetes mellitus.
[2024-10-26] VITALS (11 sets, daily range): BP systolic 132–174; BP diastolic 78–98; PULSE 53–81; RESP 14–93; TEMP 36.1–36.9; O2SAT 96–99
--- NOTE | 2024-10-26 | XR_ITS ---
Examination: MRI brain without intravenous contrast. Date and time of exam: October 26, 2024 1022 hours INDICATIONS: Onset dizziness episodes beginning yesterday, history CVA right brainstem Technique: Multiple axial and sagittal images of the brain obtained. Siemens high-resolution 1.5 Karon short bore scanners utilized. Sagittal sections, T1-weighted, TR 500, TE 14, are performed. Axial sections proton-density and T2-weighted have been obtained. Inversion recovery axial images, TR 9, 260, TE 111, TI 2500. Diffusion weighted images, axial sections, TR 4800, TE 128, B value 1000 Axial sections, ADC map, TR 4800, TE 128 Findings: Enlargement of the sella turcica is not present. The optic chiasm and infundibular are not remarkable. Prepontine and interpeduncular cisterns are not enlarged. There is no localized enlargement of the medulla or agustin. Fourth ventricle and cerebellar tonsils appear normal in position. No subacute area of hemorrhage density is seen. Mass in the cerebellopontine angle region is not evident. Globes symmetrical. Orbital musculature including medial lateral rectus muscles do not exhibit abnormality. Diffusion-weighted images demonstrate subtle foci restricted diffusion in the left parietal lobe diffusion image 14, without definite signal deficit on the ADC map. Increased white matter signal moderate Mass effect upon the ventricular system is not identified. Impression: Subtle foci restricted diffusion left parietal lobe without definite signal deficit on the ADC map Recommend neurology consultation and correlation with clinical findings
[2024-10-26 06:10] LABS: Basophils % (Auto) 1 % (0-2.5); Eosinophils # (Auto) 0.2 Thou/mm3 (0.0-0.5); Eosinophils % (Auto) 3 % (0-10); Hematocrit 40.4 % (36.0-46.0); Immature Granulocytes % (Auto) 0 % (0-0); Immature Granulocytes Auto 0.01 Thou/mm3 (0.00-0.00); Lymphocytes # (Auto) 3.1 Thou/mm3 (1.0-4.8); Lymphocytes % (Auto) 49 % (10-50); Mean Corpuscular HGB Conc 34.7 g/dl (31.0-37.0); Mean Corpuscular Volume 90 fL (80-100); Monocytes # (Auto) 0.5 Thou/mm3 (0.0-0.8); Monocytes % (Auto) 8 % (0-12); Neutrophils # (Auto) 2.5 Thou/mm3 (1.8-7.7); Neutrophils % (Auto) 39 % (37-80); Nucleated Red Blood Cell % 0 /100 WBC (0); Platelet Count 220 Thou/mm3 (140-440); Red Blood Count 4.51 Miln/mm3 (4.00-5.20); White Blood Count 6.3 Thou/mm3 (3.6-11.0)
[2024-10-26 06:28] LABS: Alanine Aminotransferase 28 U/L (10-49); Albumin/Globulin Ratio 1.8 (1.2-2.2); Alkaline Phosphatase 86 U/L (46-116); Anion Gap 14 (7-16); Aspartate Amino Transferase 22 U/L (0-34); BUN/Creatinine Ratio 23 Ratio (12-20); Bilirubin,Total 0.9 mg/dL (0.3-1.2); Blood Urea Nitrogen 14 mg/dL (9-23); Carbon Dioxide 27.8 mMol/L (20.0-31.0); Cardiac Risk Estimate 4.7 RATIO (3.7-5.6); Chloride 102 mMol/L (98-107); Cholesterol 188 mg/dL (132-200); Creatinine (Component) 0.6 mg/dL (0.6-1.3); Estimated Creatinine Clearance 93.7 mL/min (>60); Globulin 2.2 gm/dL (2.3-3.5); Glucose 178 mg/dL (74-106); HDL Cholesterol 40 mg/dL (40-60); LDL Cholesterol,Calculated 84 mg/dL (0-130); Magnesium 1.7 mg/dL (1.6-2.6); Osmolality,Calculated 291 (275-295); Phosphorous 4.2 mg/dL (2.4-5.1); Potassium 3.4 mMol/L (3.4-5.1); Sodium 144 mMol/L (136-145); Thyroid Stimulating Hormone 3.62 uIU/mL (0.55-4.78); Total Protein 6.2 gm/dL (5.7-8.2); Triglycerides 319 mg/dL (30-150); eGFR > 60 See Note
[2024-10-26 07:02] LABS: Glucose Estimated Average 200 mg/dL (80-131); Hemoglobin A1C 8.6 % Hgb (4.8-6.0)
[2024-10-26] MEDS: INSULIN LISPRO (AdmeLOG) 1 UNIT/0.01 ML UNIT SC ×3 (07:34→20:47)
[2024-10-26] MEDS: ENOXAPARIN SOD INJ 40 MG/0.4 ML SYRINGE SC (10:07)
[2024-10-26] MEDS: LOSARTAN POTASSIUM 25 MG TABLET 100 MG PO (10:07)
[2024-10-26] MEDS: carVEDILOL 3.125 MG TABLET 6.25 MG PO ×2 (10:09→20:39)
[2024-10-26] MEDS: CLOPIDOGREL BISULFATE 75 MG TABLET PO (10:10)
[2024-10-26] MEDS: ASPIRIN EC 81 MG TABEC PO (10:10)
--- NOTE | 2024-10-26 10:13 | PC.NURSE ---
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
--- NOTE | 2024-10-26 12:41 | PC.SS ---
Farida Kern is a 63-year-old female admitted to [facility] for Ataxia. SS conducted bedside contact with the patient to complete initial assessment and to discuss discharge planning. Role and reason explained, pt was accompanied by dtr Candace Kern [phone]. Patient confirmed demographic information. Patient identifies dtr as her surrogate decision maker. Pt states she is able to complete all ADL?s independently, pt ut\ilizes a single point cane.. Pts PCP is Abilio HALEY (last vist 10/17/24). Pharmacy of choice is [facility]. Discharge options discussed and the pt wishes to return home.? Family will provide transportation upon DC. No further intervention required at this time, social worker masters would be available to address any further concerns. DC Plan: Home Contact: Candace ely PCP: Abilio
--- NOTE | 2024-10-26 13:55 | ESPR_ITS ---
<Statement entered by Skyler Arellano MD - 11/02/24 13:35> I reviewed above note and agree with findings and plans. I have also personally examined the patient with medicine team and went over assessment and plan with medical team including electrical engineering intern and resident physician. Documentation for date of: 10/26/24 Subjective Subjective Interval history: Patient examined at bedside. Has no major complaints states that she is feeling better. Alert and oriented x 3. BP on softer side so decreased home Coreg dose to 6.25BID. MR brain negative for acute stroke findings. CTA 90% stenosis mid right M1 segment middle cerebral artery. Physical therapy and neurology recommendations pending. Exam Vital Signs Temp Pulse Resp BP Pulse Ox O2 Del Method 98.4 F 65 16 142/93 H 97 Room Air 10/26/24 08:00 10/26/24 10:09 10/26/24 08:00 10/26/24 10:09 10/26/24 08:00 10/26/24 08:00 Narrative Exam General: Female, well kempt, No acute distress, cooperative HEENT: NCAT, No JVD noted. Mucosa dry. Pupils are equal and reactive to light bilaterally Cardiovascular: Normal S1 and S2. Regular rate and rhythm. Respiratory: Lungs are clear to auscultation bilaterally. No wheezing or crackles heard. Abdomen: Soft, nontender, not distended, normal bowel sounds. Skin: Warm to touch, dry, no rashes noted Musculoskeletal: No gross injuries. Able to move all 4 extremities. No pitting edema Neuro: Alert and oriented x3. No focal neuro deficits. No facial asymmetry, strenght 5/5, occular movements intact, Psych: Normal affect and mood Objective Labs 10/26/24 05:18 10/26/24 05:18 Labs: Laboratory Results - last 24 hr 10/26/24 05:18 WBC 6.3 RBC 4.51 Hgb 14.0 Hct 40.4 MCV 90 MCH 31.0 MCHC 34.7 RDW Std Deviation 42.0 Plt Count 220 D Neut % (Auto) 39 Lymph % (Auto) 49 [place] % (Auto) 8 Eos % (Auto) 3 Baso % (Auto) 1 Neut # (Auto) 2.5 Lymph # (Auto) 3.1 [place] # (Auto) 0.5 Eos # (Auto) 0.2 Baso # (Auto) 0.0 Immature Gran # (Auto) 0.01 H Absolute Nucleated RBC 0.00 Immature Gran % 0 Nucleated RBC % 0 Sodium 144 Potassium 3.4 Chloride 102 Carbon Dioxide 27.8 Anion Gap 14 BUN 14 Creatinine 0.6 Estim Creat Clear Calc 93.7 eGFR > 60 BUN/Creatinine Ratio 23 H Glucose [address] Glu mg/dL 200 H Hemoglobin A1c 8.6 H Calculated Osmolality 291 Calcium 9.0 Corrected Calcium 9.0 Phosphorus 4.2 Magnesium 1.7 Total Bilirubin 0.9 AST 22 ALT 28 Alkaline Phosphatase 86 D Total Protein 6.2 Albumin 4.0 D Globulin 2.2 L Albumin/Globulin Ratio 1.8 Triglycerides 319 H Cholesterol 188 LDL Cholesterol, Calc 84 HDL Cholesterol 40 Cholesterol/HDL Ratio 4.7 TSH 3.62 Quality Measures Quality Measures none Advance care planning discussed with:: patient Assessment & Plan Assessment Current Active Medications: Generic Name Dose Route Start Last Admin Trade Name Freq PRN Reason Stop Dose Admin Acetaminophen 650 mg 10/25/24 18:26 Acetaminophen 325 Mg Tablet PO 11/24/24 18:25 Q6H PRN Fever >100.3 or pain Aspirin 81 mg 10/26/24 09:00 10/26/24 10:10 Aspirin Ec 81 Mg Tabec PO 11/25/24 08:59 81 mg DAILY MIKE Administration Atorvastatin Calcium 80 mg 10/26/24 21:00 Atorvastatin Calcium 20 Mg Tablet PO 11/25/24 20:59 HS MIKE Carvedilol 6.25 mg 10/26/24 09:00 10/26/24 10:09 Carvedilol 3.125 Mg Tablet PO 11/25/24 08:59 6.25 mg BID MIKE Administration Clopidogrel Bisulfate 75 mg 10/26/24 09:00 10/26/24 10:10 Clopidogrel Bisulfate 75 Mg Tablet PO 11/25/24 08:59 75 mg DAILY MIKE Administration Dextrose 25 ml 10/25/24 18:30 Dextrose 50%-Water Inj 50 Ml Syringe IV 11/24/24 18:29 Q15MIN PRN BG 50-70 responsive npo pt Dextrose 50 ml 10/25/24 18:30 Dextrose 50%-Water Inj 50 Ml Syringe IV 11/24/24 18:29 Q15MIN PRN BG <50 OR BG <70 & pt unresponsive Enoxaparin Sodium 40 mg 10/25/24 18:30 10/26/24 10:07 Enoxaparin Sod Inj 40 Mg/0.4 Ml Syringe SC 11/08/24 18:29 40 mg QDAY MIKE Administration Glucagon 1 mg 10/25/24 18:30 Glucagon Inj 1 Mg Vial IM Q15MIN PRN BG <70, and no IV access Insulin Glargine 30 unit 10/26/24 21:00 Insulin Glargine (Lantus) 5 Unit/0.05 Ml (Per 5 Units) SC 11/25/24 20:59 HS MIKE Insulin Human Lispro 0 unit 10/25/24 21:00 10/26/24 11:25 Insulin Lispro (Admelog) 1 Unit/0.01 Ml Unit SC 11/24/24 20:59 1 unit ACHS MIKE Administration Protocol Labetalol HCl 10 mg 10/25/24 18:58 Labetalol Inj 5 Mg/Ml Vial 20 Ml IVP 11/24/24 18:59 Q6H PRN hypertension Losartan Potassium 100 mg 10/26/24 09:00 10/26/24 10:07 Losartan Potassium 25 Mg Tablet PO 11/25/24 08:59 100 mg DAILY MIEK Administration Meclizine HCl 25 mg 10/25/24 18:55 Meclizine Hcl 25 Mg Tablet PO 11/24/24 18:54 TID PRN Dizziness Ondansetron HCl 4 mg 10/25/24 18:26 Ondansetron Inj 2 Mg/Ml Inj 2 Ml IVP 11/24/24 18:25 Q6H PRN NAUSEA OR VOMITING Protocol Sennosides 1 tab 10/25/24 18:26 Senna Tablet PO 11/24/24 18:25 QDAY PRN constipation Protocol Plan Farida Kern is 63 yr female with PMH of hypertension, hyperlipidemia, previous stroke, insulin-dependent diabetes, neuropathy, vertigo presenting to ED due to dizziness. Patient's was at bedside who also provided information. Earlier today she was working outside doing yard work, throwing away garbage when she started to feel dizzy and fell. Neurology Dr. Barbosa was consulted. Will admit patient for workup of ataxia and dizziness. No stroke alert initiated as she was out of her well-known time. #Ataxia with dizziness Unknown cause at this time. Maybe due to heat exposure, vertigo episode, dehydration, TIA. Will workup for storke. Not calling stroke aler as patient is out of well known time. Glucose elevated 337 on admission. UA negative. EKG shows sinus rhythm rate 77, QTc 442. Chest x-ray negative. CT head negative for acute hemorrhage/midline shift. CT spine negative for fracture. CTA head neck 90% stenosis mid right M1 segment middle cerebral artery. MR brain negative for acute stroke findings. -neurology Dr. Barbosa consulted ? Continue home dose Plavix ? Continue home dose atorvastatin -echo pending -PT pending -neuro check q4hr #Insulin-dependent type 2 diabetes, poorly controlled #Neuropathy On admission initial glucose 337. Last A1c 8.5 on 01/2024. Patient takes glipizide, 40 units insulin, Januvia, Ozempic for diabetes at home. A1c 8.6 on this admission. -Held home medications -Start glargine 30 units -Bedside blood glucose checks ACHS -Insulin lispro sliding scale -Carb consistent low diet - Pregabalin 150 BID #Hx HTN Patient takes Coreg 12.5 twice daily, clonidine 0.1 mg, hydrochlorothiazide 25 mg losartan 100 mg. -resumed -decreased Coreg to 6.25BID Health maintenance: Dispo: tele, stroke workup FEN: low carb DVT prophylaxis: Subcu heparin CODE STATUS: Full code The patient's management plan was discussed with my attending physician Dr. Arellano. Veronica Dodge, PGY-1
[2024-10-26] MEDS: PREGABALIN 75 MG CAPSULE 150 MG PO ×2 (14:44→20:39)
--- NOTE | 2024-10-26 16:50 | PC.PT ---
PT eval only. Patient is I with transfers and ambulation without AD.
[2024-10-26] MEDS: ATORVASTATIN CALCIUM 20 MG TABLET 80 MG PO (20:39)
[2024-10-26] MEDS: INSULIN GLARGINE (Lantus) 5 UNIT/0.05 ML (PER 5 UNITS) 30 UNIT SC (20:47)
--- NOTE | 2024-10-26 21:41 | ESDS_ITS ---
Planned Discharge Date 10/26/24 DS: Providers Provider Date of admission: 10/25/24 18:26 Primary care physician: Cristóbal Knox MD Admitting Provider: Skyler Arellano MD Attending Provider on Admission: Skyler Arellano MD Consults: 10/25/24 18:32 Consult to Neurology / Tele-Neurology Routine Comment: Consulting Provider: Pankaj Barbosa 10/25/24 22:41 Referral Physical Therapy Routine Comment: Physician Instructions: Attending Provider on DC: Skyler Arellano MD Discharging Provider: Skyler Arellano MD DS: Diagnosis Problem List Completed Was Problem List Reviewed/Reconciled?: Yes Hospital Course Hospital Course Hospital course: Reason for hospitalization: ataxia with dizziness Farida Kern is 63 yr female with PMH of hypertension, hyperlipidemia, previous stroke, insulin-dependent diabetes, neuropathy, vertigo presenting to ED on 10/25/24 due to dizziness. she was working outside doing yard work, throwing away garbage when she started to feel dizzy and fell. Neurology Dr. Barbosa was consulted and admitted patient for workup of ataxia and dizziness. CTA head neck 90% stenosis mid right M1 segment middle cerebral artery. MR brain negative for acute stroke findings. She remained stable during hospitalization. Walking around without any issues. Neuro recs: Needs better control with the diet and exercise, Continue with duloxetine 30 mg once a day with close monitoring for weight gain and renal insufficiency. Needs psychological counseling as an outpatient as all her presenting symptoms could have been related to stress. Discharge home on aspirin and statin. Discharge Recommendations: Continue taking previous medications. No new medications were prescribed. Stay hydrated, avoid excessive heat exposure, return to ED if symptoms worsen. Hospital Diagnoses: #Ataxia with dizziness #Insulin-dependent type 2 diabetes, poorly controlled #Neuropathy #Hx HTN The patient's management plan was discussed with my attending physician Dr. Arellano. Veronica Dodge MD, PGY-1 Time Spent with Patient Time attestation: Total time spent providing and/or coordinating discharge services: Time spent: Greater than 30 minutes Exam Vital Signs Temp Pulse Resp BP Pulse Ox O2 Del Method 97.0 F 80 19 170/87 H 97 Room Air 10/26/24 20:00 10/26/24 20:39 10/26/24 20:00 10/26/24 20:39 10/26/24 20:00 10/26/24 20:00 Narrative Exam General: Female, well kempt, No acute distress, cooperative HEENT: NCAT, No JVD noted. Mucosa dry. Pupils are equal and reactive to light bilaterally Cardiovascular: Normal S1 and S2. Regular rate and rhythm. Respiratory: Lungs are clear to auscultation bilaterally. No wheezing or crackles heard. Abdomen: Soft, nontender, not distended, normal bowel sounds. Skin: Warm to touch, dry, no rashes noted Musculoskeletal: No gross injuries. Able to move all 4 extremities. No pitting edema Neuro: Alert and oriented x3. No focal neuro deficits. No facial asymmetry, strenght 5/5, occular movements intact, Psych: Normal affect and mood Discharge Plan Plan Patient Disposition: HOME (Self Care) Patient condition on transfer: Stable Prescriptions/Referrals Prescriptions/Med Rec: New meclizine 25 mg Tablet 25 mg PO TID PRN (Reason: Dizziness) 30 Days Qty: 30 0RF Continued Januvia 100 mg Tablet 100 mg PO QDAY pregabalin 75 mg capsule 150 mg PO BID Patient Comments: MARITO Yang PSULA POR V A ORAL DOS VECES AL D A Novolin R FlexPen 100 unit/mL (3 mL) insulin pen See Protocol SUBCUT ACHS Protocol: Insulin Corrective High-Dose Regimen Condition: Fingerstick Blood Glucose Dose/Route: Insulin Units Condition: 150- 200 mg/dl Dose/Route: 2 units/SQ Condition: 201-250 mg/dl Dose/Route: 4 units/SQ Condition: 251-300 mg/dl Dose/Route: 6 units/SQ Condition: 301 - 350 mg/dl Dose/Route: 8 units/SQ Condition: greater than 350 mg/dl Dose/Route: 10 units/SQ Patient Comments: PLEASE SEE ATTACHED FOR DETAILED DIRECTIONS Rx Instructions: <150 = 0 151-200 = 2 units 201-250 = 4 units 251 - 300 = 6 units 301 - 350 = 8 units >350 = 10 units insulin glargine [Basaglar KwikPen U-100 Insulin] 100 unit/mL (3 mL) insulin pen 40 unit SUBCUT DAILY Patient Comments: INJECT 40 UNITS SUBCUTANEOUS DAILY 60 DAYS carvedilol 12.5 mg tablet 12.5 mg PO BID Patient Comments: MARITO ORDONEZ TABLETA POR V A ORAL DOS VECES AL BELLA glyburide 5 mg tablet 5 mg PO BID clopidogrel 75 mg tablet 75 mg PO DAILY Patient Comments: TOME JOSÉ LUIS TABLETA TODOS LOS MARTINEZ FOR 90 DAYS ORALLY 90 DAYS aspirin 81 mg Tablet 81 mg PO DAILY hydrochlorothiazide 25 mg tablet 25 mg PO DAILY Patient Comments: TOME 1 TABLETA POR V A ORAL TODOS LOS D EN LA PHAM SONG FOR 90 DAYS losartan 100 mg tablet 100 mg PO DAILY clonidine HCl 0.1 mg tablet 0.1 mg PO BID Patient Comments: TOME JOSÉ LUIS TABLETA CADA OCHO HORAS ORALLY 2 TIMES PER DAY 90 DAYS Ozempic 0.25 mg or 0.5 mg (2 mg/3 mL) pen injector 0.5 mg SUBCUT QWEEK Patient Comments: INYECTE 0.5 MG POR V A SUBCUT MERRICK SEMANALMENTE atorvastatin 80 mg tablet 80 mg PO DAILY Patient Comments: TOME 1 TABLETA POR V A ORAL TODOS LOS D FOR 30 DAYS Discontinued atorvastatin 20 mg Tablet 40 mg PO HS Qty: 30 0RF Referrals: Cristóbal Knox MD [Primary Care Provider] - Patient/Caregiver Discharge Instructions Discharge Activity: resume usual activities Other Discharge Activity Instructions:: Continue taking previous medications. No new medications were prescribed. Stay hydrated, avoid excessive heat exposure, return to ED if symptoms worsen. Education Materials: Boosting Your Mental Health, Blood Pressure Check Steps, ED TIA: Transient Ischemic Attack Print Language: Macanese Stand Alone Forms: [facility]on Award Info., Patient Portal Info Letter Discharge Order Discharge Orders: Discharge (Routine); Ordered 10/26/24 Ordered By: Veronica Dodge Quality Discharge Quality Measures VTE prophylaxis
--- NOTE | 2024-10-27 06:58 | PD.NEUROPROG ---
Documentation for date of: 10/26/24 Subjective Subjective Interval history: Patient was seen in telemetry today with her family at bedside. Denies any new symptoms or recurrence of similar symptoms after admission. She is walking around without any issues. Exam - Neurology Vital Signs Temp Pulse Resp BP Pulse Ox O2 Del Method 97.6 F 65 19 162/78 H 99 Room Air 10/26/24 21:40 10/26/24 21:40 10/26/24 21:40 10/26/24 21:40 10/26/24 21:40 10/26/24 21:40 Narrative Exam GENERAL APPEARANCE: Well hydrated, well-nourished in no acute distress. HEENT: Normocephalic, atraumatic, extraocular movements intact. Pupils: Equal reacting to light and accommodation NECK: Supple, no JVD or bruits. CARDIOVASULAR: Heart: S1, S2 heard, regular without S3-S4 or murmur no rubs or gallops. LUNGS/CHEST: Clear to auscultation bilaterally. No rails, rhonchi, or wheezing. Normal inspection. ABDOMEN: Soft, nontender, with normal bowel sounds. No pulsatile masses. No rebound, rigidity, or guarding. Normal inspection and palpation. EXTREMITIES: Normal inspection and palpation. No edema, clubbing or cyanosis. SKIN: Warm and dry without rashes. Normal inspection. MUSCULOSKELETAL: No cervical, thoracic, lumbar or midline bony tenderness. Normal inspection. NEURO: Alert, awake and oriented x3. Cranial nerves: II through XII grossly intact. Left facial weakness of upper motor neuron type noted. Speech and language: Normal with no dysarthria or dysphasia. Motor system: Tone and bulk: Normal: Strength: 5 out of 5 in all 4 extremities; No pronator drift noted. Deep tendon reflexes: 2+ bilaterally symmetrical. Plantar reflex: Downgoing bilaterally. Sensory system: Intact to all modalities of sensation bilaterally. She does have subjective paresthesias in the distal lower extremities. Coordination: Intact to [id number] and wjxv-[id number] test bilaterally. No ataxia, no dysmetria, or dysdiadochokinesia noted. No intention tremors noted. Gait: Normal. Toe, heel, tandem walk all are normal. Romberg: Negative. No signs of meningeal irritation noted. PSYCHIATRIC: Normal mood and affect. Objective Labs 10/26/24 05:18 10/26/24 05:18 Labs: Laboratory Results - last 24 hr 10/26/24 05:[address] Glu mg/dL 200 H Hemoglobin A1c 8.6 H Assessment & Plan Assessment and plan (1) Ataxia: Status: Resolved (2) Impairment of balance: Status: Resolved (3) Type 2 diabetes mellitus: Status: Chronic Assessment and plan: needs strict sugar control Needs diabetes education upon discharge (4) Hypertension: Status: Chronic Assessment and plan: Needs better control with the diet and exercise in addition (5) Anxiety and depression: Status: Acute Assessment and plan: Continue with duloxetine 30 mg once a day with close monitoring for weight gain and renal insufficiency. Needs psychological counseling as an outpatient as all her presenting symptoms could have been related to stress. (6) TIA (transient ischemic attack): Status: Resolved Assessment and plan: Reassurance given to the patient regarding the negative workup including MRI brain. Could have been brought on by underlying stress from losing close family members. Patient is stable for discharge home on aspirin and statin Home meds Will see her back in my office in 2 weeks (7) Stenosis of intracranial vessel: Status: Acute Assessment and plan: Needs dual antiplatelet therapy and vascular risk factor reduction
== END 2024-10-26 21:43 | disposition home or self-care (01) | DRG 93 ==
LOC: SERX 12:28 → SERHOLD 18:43 → S2NX 21:17
PROVIDERS: Nurse Practitioner Primary Care; Admitting Provider Internal Medicine; Emergency Provider Emergency Medicine; PCP Family Medicine; Visit Provider Internal Medicine
DX: R27.0 Ataxia, unspecified (principal); E78.5 Hyperlipidemia, unspecified; I10 Essential (primary) hypertension; E11.40 Type 2 diabetes mellitus with diabetic neuropathy, unspecified; R42 Dizziness and giddiness; Z79.4 Long term (current) use of insulin; W19.XXXA Unspecified fall, initial encounter; E11.65 Type 2 diabetes mellitus with hyperglycemia; F32.A Depression, unspecified; F41.9 Anxiety disorder, unspecified; Z79.02 Long term (current) use of antithrombotics/antiplatelets; Z79.82 Long term (current) use of aspirin; Z79.84 Long term (current) use of oral hypoglycemic drugs; Z79.899 Other long term (current) drug therapy; Z86.73 Personal history of transient ischemic attack (TIA), and cerebral infarction without residual deficits; Z88.5 Allergy status to narcotic agent
CPT/HCPCS: 36415; 70450; 70496; 70498; 70551; 71046; 72125; 80053; 80061; 81001; 83036; 83735; 83880; 84100; 84443; 84484; 85025; 85610; 85730; 86635; 93005; 97162; 99285; A4649; J1650; J1815; Q9967; A9270